=== PATIENT | male | born 1950 | race Caucasian/White ===

== ENCOUNTER 2016-11-02 08:18 | Emergency (ER) | payer BC ==
[2016-11-02 08:30] VITALS: BP 132/79
--- NOTE | 2016-11-02 08:42 | UC ---
Skin Complaint HPI - HPI Summary HPI Summary: left ear pain x 2 days + swollen and redness behind the left ear, ? started with a bug bite + chills, no fever - History of Current Complaint Chief Complaint: UCSkin Time Seen by Provider: 11/02/16 08:33 Stated Complaint: LEFT EAR INSECT BITE Hx Obtained From: Patient Onset/Duration: Gradual Onset, Lasting Days - 2, Still Present Timing: Constant Onset Severity: Moderate Current Severity: Moderate Location: Discrete - left ear, Ear (Left) Character: Swelling, Pain, Hives, Redness, Raised, Painful Aggravating: Touch Alleviating: Nothing Associated Signs & Symptoms: Positive: Chills, Tenderness. Negative: Nausea, Vomiting, Numbness, Thirst, Diaphoresis, Weakness, Fever, Cough, Wheezing, Chest Pain - Allergy/Home Medications Allergies/Adverse Reactions: Allergies Allergy/AdvReac Type Severity Reaction Status Date / Time Sulfa Antibiotics Allergy Intermediate Rash Verified 11/02/16 08:30 Home Medications: Home Medications Atenolol TAB* [Tenormin TAB* 50 MG] 50 mg PO BID 11/02/16 [History Confirmed ] Ejdghxgqbyc-Odebnoronjp-Rvk C- [Glucosamine Chondroitin] 1 tab PO DAILY [History Confirmed 11/02/16] Ibuprofen [Advil] 400 mg PO PRN 11/02/16 [History] Multiple Vitamin [Multi Vitamin] 1 tab PO DAILY 11/02/16 [History Confirmed ] Review of Systems Constitutional: Chills Eyes: Negative ENT: Negative Respiratory: Negative Cardiovascular: Negative All Other Systems Reviewed And Are Negative: Yes PMH/Surg Hx/FS Hx/Imm Hx Previously Healthy: Yes - Surgical History Surgical History: None - Family History Known Family History: Negative: Diabetes - Social History Alcohol Use: Daily Alcohol Amount: 3-4 beers daily Substance Use Type: Marijuana Substance Use Comment - Amount & Last Used: occ usage Smoking Status (MU): Former Smoker Type: Cigarettes Length of Time of Smoking/Using Tobacco: approx 20 yrs When Did the Patient Quit Smoking/Using Tobacco: Physical Exam Triage Information Reviewed: Yes Appearance: Well-Appearing, No Pain Distress, Well-Nourished Vital Signs: Initial Vital Signs Temp 99.2 F 11/02/16 08:24 Pulse 63 11/02/16 08:24 Resp 16 11/02/16 08:24 BP 132/79 11/02/16 08:24 Pulse Ox 98 11/02/16 08:24 Vital Signs Reviewed: Yes Eyes: Positive: Conjunctiva Clear ENT: Positive: Normal ENT inspection, Hearing grossly normal, Pharynx normal Neck exam: Normal Neck: Positive: Supple, Nontender, No Lymphadenopathy Respiratory: Positive: Chest non-tender, Lungs clear, Normal breath sounds Cardiovascular: Positive: RRR, No Murmur, Pulses Normal Skin: Positive: Other - left ear: + erythema, + edema and swelling , + tenderness behind the left ear Course/Dx - Diagnoses Provider Diagnoses: celluliti left ear Discharge - Discharge Plan Condition: Stable Disposition: HOME Prescriptions: Cephalexin CAP* [Keflex CAP*] 500 mg PO TID #30 cap Mupirocin 2% CREAM* [Bactroban 2% CREAM*] 1 applic TOPICAL BID #1 tube Patient Education Materials: Cellulitis (ED) Additional Instructions: follow up with your pcp in 5 days
== END 2016-11-02 08:55 | disposition home or self-care (01) ==
LOC: UCCORT 08:18
DX: H60.12 Cellulitis of left external ear (principal); Z87.891 Personal history of nicotine dependence
CPT/HCPCS: 99212; G0463

== ENCOUNTER 2016-11-21 09:32 | Emergency (ER) | payer BC ==
[2016-11-21 09:51] VITALS: BP 134/85
--- NOTE | 2016-11-21 09:58 | UC ---
Skin Complaint HPI - HPI Summary HPI Summary: Pt presents with c/o left ear swelling, erythema, pruritis. Pt thinks he was bit by and insect. - History of Current Complaint Chief Complaint: UCSkin Time Seen by Provider: 11/21/16 09:52 Stated Complaint: RE-CHECK LEFT EAR Hx Obtained From: Patient Onset/Duration: Sudden Onset, Lasting Days Skin Exposure Onset/Duration: Days Ago Timing: Constant Onset Severity: Mild Current Severity: Mild Location: Discrete - left ear Character: Pruritus, Redness, Raised Aggravating: Touch Alleviating: Unknown Associated Signs & Symptoms: Positive: Negative Related History: Insect Bite/Sting - possible - Allergy/Home Medications Allergies/Adverse Reactions: Allergies Allergy/AdvReac Type Severity Reaction Status Date / Time Sulfa Antibiotics Allergy Intermediate Rash Verified 11/21/16 09:41 Review of Systems Constitutional: Negative Skin: Rash, Other - pruritis Eyes: Negative ENT: Other - left ear swelling, erythema, tenderness Respiratory: Negative Cardiovascular: Negative Gastrointestinal: Negative Genitourinary: Negative Motor: Negative Neurovascular: Negative Musculoskeletal: Negative Neurological: Negative Psychological: Negative All Other Systems Reviewed And Are Negative: Yes PMH/Surg Hx/FS Hx/Imm Hx Previously Healthy: Yes - Surgical History Surgical History: None - Family History Known Family History: Negative: Diabetes - Social History Alcohol Use: Daily Alcohol Amount: 3-4 beers daily Substance Use Type: None Substance Use Comment - Amount & Last Used: occ usage Smoking Status (MU): Former Smoker Type: Cigarettes Length of Time of Smoking/Using Tobacco: approx 20 yrs When Did the Patient Quit Smoking/Using Tobacco: Physical Exam Triage Information Reviewed: Yes Appearance: Well-Appearing Vital Signs: Initial Vital Signs Temp 98.1 F 11/21/16 09:42 Pulse 52 11/21/16 09:42 Resp 16 11/21/16 09:42 BP 134/85 11/21/16 09:42 Pulse Ox 100 11/21/16 09:42 Eye Exam: Normal ENT Exam: Other ENT: Positive: Other: - left ear pinna, mild swelling, mild erythema, slight tednerness, parotid gland left side mild swelling Neck: Positive: Enlarged Nodes @ - left parotid Respiratory Exam: Normal Cardiovascular Exam: Normal Musculoskeletal Exam: Normal Neurological Exam: Normal Psychological Exam: Normal Skin Exam: Normal Course/Dx - Differential Diagnoses - Skin Complaint Differential Diagnoses: Cellulitis, Local Allergic Reaction - Diagnoses Provider Diagnoses: cellulitis. localized allergic reaction/insect bite? Discharge - Discharge Plan Condition: Stable Disposition: HOME Prescriptions: Cephalexin CAP* [Keflex 500 CAP*] 500 mg PO Q12H #20 cap Loratadine [Claritin 10 MG CAP] 10 mg PO DAILY #10 cap Patient Education Materials: Cellulitis (ED), Insect Bite or Sting (ED) Referrals: Kimberley Calderon MD [Primary Care Provider] -
== END 2016-11-21 10:06 | disposition home or self-care (01) ==
LOC: UCCORT 09:32
DX: H60.12 Cellulitis of left external ear (principal)
CPT/HCPCS: 99212; G0463

== ENCOUNTER 2017-07-28 06:25 | Day surgery (SDC) | payer BC, MEDICARE ==
--- NOTE | 2017-07-14 07:32 | HP ---
ADDENDUM NOW INCLUDED ON THIS REPORT CC: Dr. Kimberley Calderon * PREOPERATIVE HISTORY AND PHYSICAL: DATE OF ADMISSION: 07/28/17 This patient is scheduled for same-day surgery admission by Dr. Hargrove on , 07/28/17. DATE OF EXAMINATION: 07/13/17 ATTENDING SURGEON: Leno Hargrove MD * (dictated by Kimberley Kemp NP). CHIEF COMPLAINT: Umbilical hernia. HISTORY OF PRESENT ILLNESS: The patient is a 67-year-old male referred to Dr. Hargrove from Dr. Calderon for evaluation of an umbilical hernia. The patient has been aware of the umbilical hernia for sometime, but it has become increasingly painful recently. He denies any signs or symptoms to suggest incarceration or strangulation. He has been treated for carcinoma of the prostate with radiation therapy. He has not had previous abdominal surgery. He was originally scheduled for open repair of the umbilical hernia with mesh in May 2017 but experienced chest tightness and was admitted to [facility] in [place]. He was diagnosed with atrial fibrillation and started on Xarelto; he did not have a myocardial infarction. He underwent a stress testing at [facility] last week, the results were normal and the patient was cleared by Dr. Soliz from [facility] to proceed with the recommended surgery. Dr Hargrove has examined the patient and notes a small umbilical hernia approximately 2 cm across that is reducible and somewhat tender. Dr. Hargrove has recommended open repair of the umbilical hernia with mesh as a same-day surgery procedure and has discussed the nature of the surgical procedure, the relevant risks, and benefits and today I reviewed the expected postoperative care and recovery. The patient has had a chance to ask questions and stated that he understands the information and is satisfied with the answers given to his questions. He will sign surgical consent on the day of surgery. PAST MEDICAL HISTORY: Significant for hypertension, atrial fibrillation, prostate cancer treated with radiation therapy, and mild thrombocytopenia. PAST SURGICAL HISTORY: Right knee arthroscopy and tonsillectomy. MEDICATIONS: 1. Xarelto 20 mg p.o. daily in the evening and he will take his last dose prior to surgery on 07/25/17. 2. Atenolol 50 mg p.o. daily. 3. Lisinopril 5 mg p.o. daily. 4. Osteo Bi-Flex 1500 mg p.o. daily. ALLERGIES: SULFA DRUGS caused swelling. FAMILY HISTORY: Mother alive at age 93, living independently; she has a history of surgery for goiter; father at age 83 with leukemia. No known anesthesia complications, bleeding tendencies, or clotting disorders in the family. SOCIAL HISTORY: He is and retired; he quit smoking in the ; up until May of this year he was drinking a 6-pack of beer daily, now he is drinking an occasional beer or glass of wine. He denies the use of other substances. REVIEW OF SYSTEMS: Constitutional: No fevers, chills, excessive fatigue, or weight loss. Endocrine: No diabetes or thyroid disease. Hematologic: No easy bruising or bleeding. He has never received a blood transfusion. Respiratory: No dyspnea on exertion. No chronic cough. Cardiovascular: No anginal chest pain or palpitations. As previously mentioned, he is on Xarelto because of an episode of atrial fibrillation in May 2017. He has never had a myocardial infarction; an EKG done in April 2017 revealed sinus bradycardia and a nuclear stress test last week at [facility] was normal and he was cleared by Dr. Soliz from Cardiology at [facility] to proceed with the recommended surgery. Gastrointestinal: No nausea, vomiting, diarrhea, chronic constipation, or rectal bleeding. No change in bowel habits. Genitourinary: No dysuria. Musculoskeletal: No joint or back pain. Neurologic: No headache, blurred vision, or areas of focal weakness. General: No history of deep vein thrombosis or pulmonary embolism; no previous anesthesia complications. PHYSICAL EXAMINATION GENERAL SURVEY: The patient is a 67-year-old male, well developed, well nourished, in no acute distress. VITAL SIGNS: Height 68 inches, weight 196 pounds. Body mass index 29.8. Blood pressure 128/80, pulse 60, respiratory rate 16, temperature 97.8 tympanic. SKIN: Warm, dry, intact. HEENT: Benign. NECK: Supple. No cervical lymphadenopathy. No carotid bruits. BACK: No CVA tenderness. LUNGS: Breath sounds bilaterally clear and equal. HEART: Regular rate and rhythm. No murmurs or rubs appreciated. ABDOMEN: Obese and soft; small umbilical hernia no more than 2 cm across, tender but reducible; no other palpable masses or organomegaly, but exam is limited by body habitus. EXTREMITIES: Warm without edema or skin ulcerations. GENITALIA: Deferred. RECTAL: Deferred. NEUROLOGIC: Alert and oriented x3. Steady gait. IMPRESSION: Umbilical hernia. PLAN: Same-day surgery admission to Dr. Hargrove's service on , 07/28/17 for open repair of umbilical hernia with mesh. DAVID KEMP NP ADDENDUM: The patient has a history of mild thrombocytopenia, his most recent platelet count in April 2017 was 131,000 and in February 2017 it was 119,000. DAVID KEMP, ANETTE [id number]/[facility] #: [id number]/[facility] #: [id number] ASHLEE
--- NOTE | 2017-07-14 07:32 | HP ---
PREOPERATIVE HISTORY AND PHYSICAL: * ADDENDUM: The patient has a history of mild thrombocytopenia, his most recent platelet count in April 2017 was 131,000 and in February 2017 it was 119,000. DAVID KEMP, AUDIO PRODUCTION ENGINEER [id number]/[facility] #: [id number] [facility] OISHE[facility] CHILDREN'S HOSPITALIrene
[~2017-07-28 06:25] MED LIST: Buffered Lidocaine 0.9% SYRIN* 5 ML/SYR SYRINGE INTRADERM ONE; Famotidine IV* 10 MG/ML 2 ML (20 mg) IV ONE; Sodium Citrate/Citric Acid* 15 ML UDC PO ONE
[2017-07-28] MEDS ORDERED: ceFAZolin 2 GM PREMIX (*) 2 GM/50 ML BAG IVPB ONE (06:46)
[2017-07-28] MEDS ORDERED: Sodium Citrate/Citric Acid* 15 ML UDC ONE (06:46)
[2017-07-28] MEDS ORDERED: Famotidine IV* 10 MG/ML 2 ML (20 mg) ONE (06:46)
[2017-07-28] MEDS ORDERED: Buffered Lidocaine 0.9% SYRIN* 5 ML/SYR SYRINGE ONE (06:46)
[2017-07-28] MEDS ORDERED: Bupivacaine 0.5% SDV PF* 10-30ML VIAL ONE (07:24)
[2017-07-28] MEDS ORDERED: Lidocain 1% EPI 1:100,000 * 30 ML MDV ONE (07:24)
[2017-07-28] MEDS ORDERED: Midazolam* 1 MG/ML 2 ML VIAL (2 MG) ONE ×2 (07:29→08:07)
[2017-07-28] MEDS ORDERED: fentaNYL* 50 MCG/ML 2 ML VIAL (100 MCG VIAL) ONE (07:29)
[2017-07-28] MEDS ORDERED: Propofol* 500 MG/50 ML BTL ONE (07:37)
[2017-07-28] MEDS ORDERED: Lidocaine 2% PF * 5 ML VIAL ONE (07:37)
[2017-07-28] MEDS ORDERED: Acetaminophen TAB* 325 MG PO PRN (07:57)
[2017-07-28] MEDS ORDERED: Ondansetron INJ* 2 MG/ML VIAL IV PRN (07:57)
[2017-07-28] MEDS ORDERED: fentaNYL* 50 MCG/ML 2 ML VIAL (100 MCG VIAL) IV PRN (07:57)
[2017-07-28] MEDS ORDERED: Naloxone* 0.4 MG/ML 1 ML VIAL IV PRN (07:57)
[2017-07-28] MEDS ORDERED: diPHENhydraMINE IV* 50 MG/ML 1 ml VIAL (BENADRYL) IV PRN (07:57)
[2017-07-28] MEDS ORDERED: oxyCODONE/Acetamin 5/325 MG* TAB PO PRN (07:57)
[2017-07-28] MEDS ORDERED: HYDROmorphone INJ* 1 MG/ML CARPUJECT SYRINGE IV PRN (07:57)
[2017-07-28 09:37] VITALS: BP 115/75
--- NOTE | 2017-07-28 09:43 | OP ---
CC: Dr. Calderon * DATE OF OPERATION: 07/28/17 - SDS DATE OF : 54 SURGEON: Leno Hargrove MD BROADCAST PROGRAM DIRECTOR: JOSEPH Menezes ANESTHESIOLOGIST: Dr. Nguyen ANESTHESIA: LMAC anesthesia. PRE-OP DIAGNOSIS: Umbilical hernia. POST-OP DIAGNOSIS: Umbilical hernia. OPERATIVE PROCEDURE: Open umbilical hernia with mesh. DESCRIPTION OF PROCEDURE: The patient was supine on the operative table. After adequate intravenous sedation, compression stockings, Socrates Hugger warmer, and intravenous antibiotics, the abdomen was prepped with antiseptic, draped in a sterile fashion. Local infiltrative anesthesia was administered. Curvilinear incision was created in the supraumbilical region and the hernia was readily identified. It was dissected free and reduced. There was approximately 2 cm umbilical hernia defect. A 4 cm round mesh was chosen and sutured up in the underlay fashion with 4 sutures of 0-Vicryl. The fascia was closed over top with 0- Vicryl. The umbilical skin was tacked back down with 3- 0 Vicryl which was also used to close the subcutaneum. Skin was closed with 5- 0 Vicryl followed by Steri-Strips. He tolerated the procedure well, was awakened and brought to Recovery in good condition. No complications. No drains. No pathologic specimens. Sponge and instrument counts were correct. Estimated blood loss was less than 10 mL. [id number]/[facility] #: [id number] MTDD
== END 2017-07-28 10:24 | disposition home or self-care (01) ==
LOC: OR 06:25
PROVIDERS: ATTEND Surgery
DX: K42.9 Umbilical hernia without obstruction or gangrene (principal); I10 Essential (primary) hypertension; I48.91 Unspecified atrial fibrillation; D69.6 Thrombocytopenia, unspecified; Z85.46 Personal history of malignant neoplasm of prostate; Z79.82 Long term (current) use of aspirin; Z88.2 Allergy status to sulfonamides; Z87.891 Personal history of nicotine dependence; Z92.3 Personal history of irradiation
CPT/HCPCS: A9270-GY; C1781; J0690; J2250; J2704; J3010

== ENCOUNTER 2018-09-03 12:51 | Emergency (ER) | payer BC, MEDICARE ==
--- NOTE | 2018-09-03 13:51 | UC ---
Skin Complaint HPI - HPI Summary HPI Summary: 68 y/o male presents to the urgent care c/o tick removed from left mid thigh 2 days ago. Pt states he got the whole tick. However he has developed a red rash at the bite site. He is concerned about Lyme disease. tick was attached only for a couple of hrs and was not engorge. He has been applying triple antibiotic ointment. However this morning he notices it got a little bit bigger. He denies fever, VERA, joint pain, SOB, dizziness, chest pain, abdominal pain, N/v/d. - History of Current Complaint Time Seen by Provider: 09/03/18 13:50 Stated Complaint: TICK BITE Hx Obtained From: Patient Onset/Duration: Sudden Onset, Lasting Days - 2 days ago, Resolved - tick removed Skin Exposure Onset/Duration: Days Ago - 2 dasy Timing: Constant Onset Severity: Mild Current Severity: Mild Pain Intensity: 0 Pain Scale Used: 0-10 Numeric Location: Discrete - left mid thigh tick bite Character: Pruritus, Redness Aggravating Factor(s): Touch Alleviating Factor(s): Other - tick removal Associated Signs & Symptoms: Positive: Rash - tick bite on the left thigh. Negative: Fever, Chills, Drainage, Tenderness Related History: Possible Reaction to: Insect - tick - Allergy/Home Medications Allergies/Adverse Reactions: Allergies Allergy/AdvReac Type Severity Reaction Status Date / Time Sulfa (Sulfonamide Allergy shaky and Verified 09/03/18 14:14 Antibiotics) rash Dust and Feathers Allergy Runny Nose Uncoded 09/03/18 14:14 PMH/Surg Hx/FS Hx/Imm Hx Previously Healthy: Yes Cardiovascular History: Hypertension - Surgical History Surgical History: Yes Surgery Procedure, Year, and Place: Colonoscopy. RIGHT KNEE ARTHSOSCOPY- - Family History Known Family History: Positive: Hypertension Negative: Diabetes - Social History Occupation: Retired Lives: With Family Alcohol Use: Occasionally Alcohol Amount: couple beers a day Substance Use Type: None Substance Use Comment - Amount & Last Used: occ usage Smoking Status (MU): Former Smoker Type: Cigarettes Amount Used/How Often: 1-2 CIGARETTES PER DAY X 15 YEARS Length of Time of Smoking/Using Tobacco: approx 20 yrs Have You Smoked in the Last Year: No When Did the Patient Quit Smoking/Using Tobacco: Review of Systems All Other Systems Reviewed And Are Negative: Yes Constitutional: Positive: Negative Skin: Positive: Other - left thigh tick bite w/ a rash Eyes: Positive: Negative ENT: Positive: Negative Respiratory: Positive: Negative Cardiovascular: Positive: Negative Gastrointestinal: Positive: Negative Genitourinary: Positive: Negative Motor: Positive: Negative Neurovascular: Positive: Negative Musculoskeletal: Positive: Negative Neurological: Positive: Negative Psychological: Positive: Negative Is Patient Immunocompromised?: No Physical Exam - Summary Physical Exam Summary: Vital Signs Reviewed: Yes General: well developed, well nourished male sitting in the examining table w/o any apparent distress. Eyes: Positive: Conjunctiva Clear - PERRLA, EOMI ENT: Positive: Normal ENT inspection, Hearing grossly normal, Pharynx normal, TMs normal Neck: Positive: Supple, Nontender, No Lymphadenopathy Respiratory: Positive: Chest nontender, Lungs clear, Normal breath sounds Cardiovascular: Positive: RRR, No Murmur, Pulses Normal Abdomen Description: Positive: Nontender, No Organomegaly, Soft. Negative: CVA Tenderness (R), CVA Tenderness (L) Bowel Sounds: Positive: Present Musculoskeletal: Positive: Strength Intact, ROM Intact, No Edema Neurological Exam: Normal Psychological Exam: Normal Skin: Positive: rashes - Proximal medial aspect of Left thigh with tick bite with surrounding erythema about 1.0cm x1.0cm in size w/o any central clearance, non tender to palpation. tick no longer present, no swelling or drainage observed. Triage Information Reviewed: Yes Course/Dx - Course Course Of Treatment: 68 y/o male presents to the urgent care c/o tick removed from left mid thigh 2 days ago. Pt states he got the whole tick. However he has developed a red rash at the bite site. He is concerned about Lyme disease. tick was attached only for a couple of hrs and was not engorge. He has been applying triple antibiotic ointment. However this morning he notices it got a little bit bigger. He denies fever, VERA, joint pain, SOB, dizziness, chest pain, abdominal pain, N/v/d. Hx obtained. Pt w/ Proximal medial aspect of Left thigh with tick bite with surrounding erythema about 1.0cm x1.0cm in size w/o any central clearance, non tender to palpation. tick no longer present, no swelling or drainage observed on examination. Pt explained this is not the erythema migrans rash. advised to continue applying triple antibitoic oint over tick bite. Antibiotic prophylaxis with Doxycycline given to the patient to prevent lyme Disease.. Pt tolerated well medication. Pt advised to observe the area for the development or Erythema Migrans for upto 30 days following exposure. Advised if he develops fever or erythema Migrans to return to the clinic or PCP for further treatment. Pt's BP is elevated today advised to decrease salt in diet, monitor BP and f/u with PCP for further management. d/c instructions explained .Pt understood and agreed with plan of care. - Differential Diagnoses - Skin Complaint Differential Diagnoses: Abscess, Cellulitis, Local Allergic Reaction, MRSA, Tick Born Illness - Diagnoses Provider Diagnosis: Tick bite of left thigh, Uncontrolled hypertension Discharge - Sign-Out/Discharge Documenting (check all that apply): Patient Departure - d/c home All imaging exams completed and their final reports reviewed: No Studies - Discharge Plan Condition: Stable Disposition: HOME Patient Education Materials: Tick Bite (ED) Referrals: Kimberley aClderon MD [Primary Care Provider] - 2 Weeks Jeny OLEARY,Rob Villareal [Medical Doctor] - If Needed Additional Instructions: 1- Please observe the area for the development or Erythema Migrans for upto 30 days following exposure. Components of the tick saliva can cause transient erythema that should not be confused with Erythema Migrans. If you develop the bull's eye rash, fever, joint pains please return to the urgent care or f/u with your PCP for further management. Please continue applying triple antibiotic 2/day x 7 days 2-Antibiotic prophylaxis with Doxycycline was given to you today to prevent lyme Disease. Lyme serology can be drawn in 2 weeks with your PCP or Dr Fermin to r/o Lyme disease since there is probability of negative results at early exposure. 3-Your BP is elevated today. please decrease salt in your diet, monitor BP and if it continues to be elevated please f/u with your PCP for further management. - Billing Disposition and Condition Condition: STABLE Disposition: Home
[2018-09-03 14:14] VITALS: BP 142/85
[2018-09-03] MEDS ORDERED: DOXYcycline CAP(*) 100 MG PO ONE (14:25)
== END 2018-09-03 14:36 | disposition home or self-care (01) ==
LOC: UCCORT 12:51
DX: S70.362A Insect bite (nonvenomous), left thigh, initial encounter (principal); I10 Essential (primary) hypertension; W57.XXXA Bitten or stung by nonvenomous insect and other nonvenomous arthropods, initial encounter; Y92.9 Unspecified place or not applicable; Z88.2 Allergy status to sulfonamides; Z91.09 Other allergy status, other than to drugs and biological substances; Z87.891 Personal history of nicotine dependence
CPT/HCPCS: 99212; A9270-GY; G0463